=== PATIENT | male | born 1960 | race Caucasian/White ===

== ENCOUNTER 2021-05-04 06:24 | Day surgery (SDC) | payer OTHER ==
[2021-05-04] MEDS ORDERED: Lactated Ringers 1,000 ML IV SCH (07:00)
[2021-05-04] MEDS ORDERED: Propofol 200 MG/20 ML SDV ONE ×2 (07:40→07:56)
[2021-05-04] MEDS ORDERED: fentaNYL 100 MCG/2 ML SDV ONE ×2 (07:40→07:44)
[2021-05-04 08:20] VITALS: PULSE 85
[2021-05-04 08:30] VITALS: BP 121/85
--- NOTE | 2021-05-05 14:18 | OR ---
PREOPERATIVE DIAGNOSIS: History of colon polyps. POSTOPERATIVE DIAGNOSIS: Colon polyps. PROCEDURE PERFORMED: Total flexible colonoscopy with biopsies. ANESTHESIA: MAC anesthesia. COMPLICATIONS: None. BLOOD LOSS: Minimal. FINDINGS: 1. Ascending sessile polyp, 10 mm, ORISE gel lift and hot snare. 2. Sigmoid polyp, 2 mm, cold forceps. Start time 0747, cecum time 0749, stop time 0805. BOWEL PREP: Burnett class 3. INDICATIONS: Mr. العلي is a 60-year-old male who is here for colonoscopy. His last scope was 5 years ago. He does have a history of polyps. Denies any bloody or dark black stools. No family history of colon cancer. DETAILS OF PROCEDURE: Informed consent was obtained. The patient was brought to the procedure room and placed in left lateral decubitus position. MAC anesthesia was used by Anesthesia colleagues without incident. The colonoscope was introduced into the rectum and advanced all the way to the cecum. Appendiceal orifice and ileocecal valve were photographed. The colonoscope was then slowly withdrawn. No pathology was identified except for what is mentioned in the above finding section. A retroflexed view was obtained. The colonoscope was removed. The patient tolerated the procedure well, was awoken from anesthesia by Anesthesia colleagues without incident. PATHOLOGY: Recommend repeat colonoscopy in years. RKM: 05/04/2021 08:15:16 MODL: 05/04/2021 15:20:26 /[id number]
== END 2021-05-04 09:26 | disposition home or self-care (01) ==
LOC: VM.SDS 06:24
PROVIDERS: ATTEND Student in an Organized Health Care Education/Training Program
DX: Z12.11 Encounter for screening for malignant neoplasm of colon (principal); D12.2 Benign neoplasm of ascending colon; E78.2 Mixed hyperlipidemia; E11.9 Type 2 diabetes mellitus without complications; E03.9 Hypothyroidism, unspecified; E66.01 Morbid (severe) obesity due to excess calories; Z79.899 Other long term (current) drug therapy; Z68.36 Body mass index [BMI] 36.0-36.9, adult
CPT/HCPCS: 00811; 82947; J2704; J3010; J7120

== ENCOUNTER 2024-06-03 07:12 | Day surgery (SDC) | payer OTHER ==
[2024-06-03] MEDS: Lactated Ringers 1,000 ML IV SCH (07:35)
[2024-06-03 07:41] LABS: GLUCOSE,POC 86 mg/dL (70-99)
[2024-06-03] MEDS ORDERED: Propofol 200 MG/20 ML SDV ONE ×2 (08:14→08:31)
[2024-06-03] MEDS ORDERED: fentaNYL 100 MCG/2 ML SDV ONE (08:14)
[2024-06-03 09:21] VITALS: BP 125/86; PULSE 82
[2024-06-12] MEDS ORDERED: Lactated Ringers 1,000 ML IV SCH (07:00)
== END 2024-06-03 10:03 | disposition home or self-care (01) ==
LOC: VM.SDS 07:12
PROVIDERS: ATTEND Family Medicine
DX: Z12.11 Encounter for screening for malignant neoplasm of colon (principal); K57.30 Diverticulosis of large intestine without perforation or abscess without bleeding; K64.9 Unspecified hemorrhoids; K62.89 Other specified diseases of anus and rectum; N40.0 Benign prostatic hyperplasia without lower urinary tract symptoms; Z86.0100 Personal history of colon polyps, unspecified; Z83.710 Family history of adenomatous and serrated polyps; E11.9 Type 2 diabetes mellitus without complications; E03.9 Hypothyroidism, unspecified; I10 Essential (primary) hypertension
CPT/HCPCS: 82947; J2704; J3010; J7120